=== PATIENT | male | born 1985 | race Caucasian/White ===

== ENCOUNTER 2024-03-03 10:15 | Emergency (ER) | payer BC, SELFPAY ==
[2024-03-03 10:35] VITALS: BP 170/97
[2024-03-03 11:05] LABS: Hematocrit 44.1 % (39.0-52.0); Mean Corp Hgb Conc. 36.3 g/dL (33.0-37.0); Mean Corpuscular Hgb 29.4 pg (27.0-31.0); Mean Corpuscular Volume 80.9 fL (80.0-94.0); Mean Platelet Volume 8.7 fL (7.4-10.4); PT 12.1 Sec (11.4-14.6); Platelet Count 224 10^3/uL (130-400); Red Blood Cell Count 5.45 10^6/uL (4.70-6.10); Red Cell Dist. Width 12.2 % (11.5-14.5); White Blood Cell Count 5.3 10^3/uL (4.8-10.8)
[2024-03-03 11:08] LABS: ALT (SGPT) 33 U/L (0-50); AST (SGOT) 26 U/L (17-59); Alkaline Phosphatase 68 U/L (38-126); Blood Urea Nitrogen 16 mg/dl (9-20); Calcium 10.1 mg/dl (8.4-10.2); Carbon Dioxide 26 mmol/L (22-30); Chloride 103 mmol/L (98-107); Glucose 90 mg/dl (70-99); Sodium 138 mmol/L (135-145); Total Bilirubin 1.3 mg/dl (0.2-1.3); Total Protein 7.6 g/dl (6.3-8.2); eGFR > 60.00
[2024-03-03 11:19] LABS: Troponin I < 0.012 ng/ml
[2024-03-03 11:53] LABS: TSH Reflex To Free T4 1.19 uIU/ml (0.47-4.68)
[2024-03-03 12:24] VITALS: BP 121/76
[2024-03-03 13:06] VITALS: BP 114/78
[2024-03-03 13:09] LABS: Troponin I < 0.012 ng/ml
--- NOTE | 2024-03-03 13:27 | ED.GENMED ---
History of Present Illness
General
Chief Complaint: Chest Problem
Source: patient
Time Seen by Provider: 03/03/24 11:31
History of Present Illness
History of Present Illness:
38-year-old male who presents after he was sitting at work and had an episode of sweating. Patient states that in the past he has had episodes of syncope associated with discomfort in his chest. He had a Holter monitor and was once admitted to the ""hospital. He states today was different where he did not have syncope and he did not have any chest discomfort. He now feels better. He states it took a little bit but felt much improved. Patient offers no current complaints. He does exercise
at times and has had no significant chest pain. No palpitations. He is not a smoker. No past medical history. No family history of early heart disease.
Past History
Past History
ED Past Medical History: None
ED Past Surgical History: Orthopedic
Phy Exam
Physical Exam
Physical Exam:
CONSTITUTIONAL Patient alert and oriented to person, place and time. Well-appearing. Vital signs reviewed.
HEAD atraumatic, normocephalic.
EYES eyelids normal to inspection, Pupils equally round and reactive to light, Extraocular muscles intact, Conjunctiva normal, Sclera normal.
NECK normal range of motion, Trachea midline, no jugular venous distention.
RESPIRATORY CHEST No respiratory distress noted, Chest expansion equal, Bilateral breath sounds clear.
CARDIOVASCULAR regular rate and rhythm, Heart sounds normal.
ABDOMEN abdomen nontender, Bowel sounds normal. No distention.
BACK normal inspection, no obvious deformities
UPPER EXTREMITY range of motion normal, Motor strength normal, no cyanosis, no edema.
LOWER EXTREMITY range of motion normal, Motor strength normal, no cyanosis, no edema.
NEURO Speech normal, No focal motor deficits, Kellee coma scale 15, Memory normal, Cranial Nerves intact to screening exam.
SKIN skin warm, dry, and normal in color.
PSYCHIATRIC patient oriented to person place and time, Normal affect.
Course
Orders/Labs/Results
Orders:
Orders
03/03/24 10:31
EKG [Electrocardiogram (*1)] Urgent
Reason for Study: Chest Pain
EKG- Treatment ONCE
03/03/24 10:45
Complete Blood Count/No Diff Urgent
Comprehensive Metabolic Panel Urgent
Prothrombin Time Urgent
Is patient on Coumadin/Warfarin?: No
TSH Reflex To Free T4 Urgent
Troponin I Urgent
03/03/24 12:20
Troponin I Urgent
03/03/24 10:45
03/03/24 10:45
Vital Signs
Initial and Last Documented VS:
Initial Vital Signs
Temp Pulse Resp BP Pulse Ox
98.6 F 82 18 170/97 98
03/03/24 10:35 03/03/24 10:35 03/03/24 10:35 03/03/24 10:35 03/03/24 10:35
Last Documented Vital Signs
Temp Pulse Resp BP Pulse Ox
98.6 F 74 18 114/78 96
03/03/24 10:35 03/03/24 13:06 03/03/24 10:35 03/03/24 13:06 03/03/24 13:06
MDM/Problems Addressed
MDM/Problems Addressed:
Diaphoresis, resolved
*Pulse Oximetry
Patient hypoxic: no
*EKG
Interpreted by ED Provider?: Yes
Interpretation: normal
Rate: normal
Rhythm: sinus
Interval: normal interval
QRS Pattern: normal QRS
Ischemia: no ischemia
*Special Education Educational Assistant Interpretation
Rate: normal
Interpretation: normal
Rhythm: sinus
*Critical Care Note
Total Time (30-74mins, 75-104mins- exclusive of procedures): Not Applicable
Data Reviewed
Source: patient
Further Testing Considered But Not Given:
Considered D-dimer but no hypoxia, shortness of breath, tachycardia or tachypnea. No significant risk factors
Patient Management
Escalation/DeEscalation of care consider admission/obs:
Patient appears well. Has had multiple episodes in the past but this time was more benign. He appears well. I did recommend he follow-up with his PCP. Given his previous episodes, could consider stress test to be ultra conservative. He does
exercise and does not have any difficulty tolerating exercise. He has no significant cardiovascular risks. Okay for discharge and outpatient PCP follow-up
ED Attending Note
-
Portions of this chart may have been created with voice recognition software.� Occasional wrong word or��sound alike� substitutions may have occurred due to the inherent limitations of voice recognition software.
Discharge Plan
Departure
Patient Disposition: Home (Routine Discharge)
Date of Disposition: 03/03/24
Time of Disposition: 13:27
Patient with high blood pressure during this ER visit?: No
Discharge Problem:
Diaphoresis
Referrals:
NONE,* [Family Provider] -
Activity Restrictions/Additional Instructions:
Diaphoresis
Please see your doctor next 3 to 5 days for follow-up and reevaluation. Return immediately for chest pain, shortness of breath, palpitations, weakness of any kind or any other concerns.
Interventions
Interventions:
*General Assessment Last Done: 03/03/24 10:35
*Neglect/Abuse Screening Last Done: 03/03/24 10:35
ED- Fall Risk Assessment Last Done: 03/03/24 12:24
*ED COVID-19 Vaccine History Last Done: 03/03/24 10:35
ED- Cardiac Assessment Last Done: 03/03/24 12:24
ED- Pulmonary Assessment Last Done: 03/03/24 12:24
Discharge Date and Time
Print Language: EMIRATI
== END 2024-03-03 13:37 | disposition home or self-care (01) ==
LOC: EMR 10:15
PROVIDERS: EMERGENCY PHYSICIAN Emergency Medicine
DX: R61 Generalized hyperhidrosis (principal)
CPT/HCPCS: 99283; 80053; 84443; 84484; 85027; 85610; 93005